=== PATIENT | male | born 1945 | race Caucasian/White ===

== ENCOUNTER → 2017-09-12 | Day surgery (SDC) | payer OTHER ==
[2017-09-11 16:57] LABS: BASOPHILS % 0.7 % (0.0-1.0); EOSINOPHILS # (AUTO) 0.1 (0.0-0.4); EOSINOPHILS % 2.4 % (0.0-6.0); HEMOGLOBIN 15.7 g/dL (14.0-18.0); LYMPHOCYTES # (AUTO) 1.5 (1.0-3.2); LYMPHOCYTES % 25.4 % (18.0-39.1); MEAN CORPUSCULAR HEMOGLOBIN 30.5 pg (28-32); MEAN CORPUSCULAR HGB CONC 34.9 g/dL (31-35); MEAN CORPUSCULAR VOLUME 87.5 fL (81-99); MONOCYTES # (AUTO) 0.5 (0.2-0.8); MONOCYTES % 7.7 % (4.4-11.3); NEUTROPHILS # (AUTO) 3.7 (2.1-6.9); NEUTROPHILS % 63.5 % (38.7-80.0); PLATELET COUNT 189 x10e3/uL (140-360); RED BLOOD COUNT 5.14 x10e6/uL (4.3-5.7); RED CELL DISTRIBUTION WIDTH 12.6 % (11.7-14.4)
--- NOTE | 2017-09-11 18:06 | Diagnostic Imaging Report ---
PROCEDURE: Frontal and lateral views of the chest. COMPARISON: None. INDICATIONS: PRE OP PROSTATE BIOPSY FINDINGS: Lines/tubes: None. Lungs: The lungs are well inflated and clear. There is no evidence of pneumonia or pulmonary edema. Incidentally seen azygous lobe. Pleura: There is no pleural effusion or pneumothorax. Heart and mediastinum: The heart and the mediastinum are normal. Bones: No acute bony abnormality. IMPRESSION: 1. No acute cardiopulmonary disease. Dictated by: Ori Bearden M.D. on 09/11/2017 at 18:10 Electronically approved by: Ori Bearden M.D. on 09/11/2017 at 18:10
[~2017-09-12] MED LIST: AMLODIPINE BESY10 MG PO; BELLADONNA/OPIUM 30 MG SUPP RC ONE; CEFTRIAXONE SOD 1 GM VIAL ONE; DEXAMETHASONE SOD PHOS INJ 4 MG/ML VIAL ONE; FENTANYL CITRATE/PF 100MCG/2 ML INJ ONE; FINASTERIDE5 MG PO; FLOMAX0.4 MG PO; GENTAMICIN 80MG/NS 100 ML 200 ML IV ONE; IOPAMIDOL 610MG/1ML 300 MG/ML VIAL IV ONE; KETAMINE HCL INJ 50 MG/ML 10 ML VIAL ONE; MIDAZOLAM HCL 2 MG/2 ML VIAL ONE; PROPOFOL IV EMULSION 10 MG/ML 20 ML VIAL ONE
--- NOTE | 2017-11-10 03:22 | Operative Report ---
DATE OF PROCEDURE: September 12, 2017 PREOPERATIVE DIAGNOSES 1. Benign prostatic hypertrophy. 2. Renal insufficiency. POSTOPERATIVE DIAGNOSES 1. Benign prostatic hypertrophy. 2. Renal insufficiency. OPERATIONS PERFORMED 1. Cystourethroscopy with bilateral ureteral catheterization and retrograde ureteropyelography (separate procedure performed for the renal insufficiency). 2. Interpretation of retrograde ureteropyelography. 3. Supervision of fluoroscopy. No radiologist present. 4. Cystourethroscopy with implantation of 4 UroLift implants. ANESTHESIA: General. COMPLICATIONS: None. CLINICAL SUMMARY: Nickolas Irene is a 72-year-old man with obstructive BPH. He is failing maximum medical therapy with finasteride and tamsulosin. The patient has a 58-mL prostate with negative prostate biopsies. He is brought for the above procedures. He is aware of the risks of bleeding, infection, injury to adjacent structures, need for additional procedures, and elected to proceed. OPERATIVE PROCEDURE IN DETAIL: Informed consent was verified. Nickolas Irene was properly identified, taken to operating room, placed on the cystoscopy table in supine position. Anesthesia was uneventfully begun. The patient was then carefully and gently repositioned in the dorsal lithotomy position with all pressure points well padded. His genitalia were prepared and draped in usual sterile fashion. The 22.5-Lith[place]ian cystoscope sheath with visual obturator in place was atraumatically inserted in patient's urethra and guided down the unremarkable urethra through the normal sphincteric region through the prostate bed that was significant for bilobar prostatic hypertrophy with kissing lateral lobes causing visual obstruction. Panendoscopy of the urinary bladder revealed grade-2 trabeculations with some glomerulations noted with minimal bladder distention. No suspicious lesions were identified. An 8-L[place]ian catheter was used to cannulate each ureter and retrograde ureteropyelograms were performed. Interpretation of retrograde ureteropyelography: Contrast was injected in retrograde fashion bilaterally. There were no tumors, no stones, and no diverticula. Unobstructed drainage was observed bilaterally fluoroscopically. There was a mass effect noted in the lower part of the right kidney consistent with the patient's known right renal cyst. The cystoscope was withdrawn with the cystoscope utilized for UroLift was atraumatically inserted. We then placed 4 UroLift implants. Two were placed 0.5 cm distal to the bladder neck anterolaterally and then, 2 additionally were placed anterolaterally at the level of the verumontanum. This resulted in continuous open anterior channel within the prostatic urethra. We verified positioning with the scope. We verified hemostasis with the scope. The bladder was drained. The cystoscope was withdrawn and the patient was uneventfully reversed from anesthesia and taken to recovery room in stable condition. Prior to leaving the operating room, digital rectal examination revealed a 40-g prostate, smooth, and non-fluctuant, without any nodules. Patient was then uneventfully reversed from anesthesia, taken to recovery room in stable condition. Plans will be to follow the patient up in the office. At which point, will perform uroflowmetry and bladder ultrasonography. Job#: [id number] CQ
== END | disposition home or self-care (01) ==
LOC: OR 07:16
PROVIDERS: ATTEND Urology
DX: N40.1 Benign prostatic hyperplasia with lower urinary tract symptoms (principal); N13.8 Other obstructive and reflux uropathy; N28.9 Disorder of kidney and ureter, unspecified; N32.89 Other specified disorders of bladder; N28.1 Cyst of kidney, acquired; I45.10 Unspecified right bundle-branch block; I10 Essential (primary) hypertension; Z01.810 Encounter for preprocedural cardiovascular examination; Z01.812 Encounter for preprocedural laboratory examination; Z01.818 Encounter for other preprocedural examination
CPT/HCPCS: 52005; C9740; 36415; 71046; 74420; 85025; 93005; J0696; J1100; J1580; J2250; L8699

== ENCOUNTER 2021-06-22 09:44 | Emergency (ER) | payer OTHER ==
[~2021-06-22] VITALS: Ht 170.2 cm; Wt 83.9 kg
[~2021-06-22 09:44] MED LIST changes: -BELLADONNA/OPIUM 30 MG SUPP RC ONE; -CEFTRIAXONE SOD 1 GM VIAL ONE; -DEXAMETHASONE SOD PHOS INJ 4 MG/ML VIAL ONE; -FENTANYL CITRATE/PF 100MCG/2 ML INJ ONE; -GENTAMICIN 80MG/NS 100 ML 200 ML IV ONE; -IOPAMIDOL 610MG/1ML 300 MG/ML VIAL IV ONE; -KETAMINE HCL INJ 50 MG/ML 10 ML VIAL ONE; -MIDAZOLAM HCL 2 MG/2 ML VIAL ONE; -PROPOFOL IV EMULSION 10 MG/ML 20 ML VIAL ONE
[2021-06-22] MEDS ORDERED: HYDROCODON-ACE1 EA11 PO (12:07)
== END 2021-06-22 12:38 | disposition home or self-care (01) ==
LOC: ER 10:18
DX: Z46.6 Encounter for fitting and adjustment of urinary device (principal); I10 Essential (primary) hypertension
CPT/HCPCS: 99283

== ENCOUNTER → 2024-07-16 | Day surgery (SDC) | payer OTHER ==
[2024-07-14 15:32] LABS: BASOPHILS % 0.5 % (0.0-1.0); EOSINOPHILS # (AUTO) 0.3 (0.0-0.4); EOSINOPHILS % 4.8 % (0.0-6.0); HEMATOCRIT 46.2 % (38.2-49.6); HEMOGLOBIN 15.6 g/dL (14.0-18.0); LYMPHOCYTES # (AUTO) 1.5 (1.0-3.2); LYMPHOCYTES % 26.6 % (18.0-39.1); MEAN CORPUSCULAR HEMOGLOBIN 30.5 pg (28-32); MEAN CORPUSCULAR HGB CONC 33.8 g/dL (31-35); MEAN CORPUSCULAR VOLUME 90.2 fL (81-99); MONOCYTES # (AUTO) 0.5 (0.2-0.8); MONOCYTES % 8.9 % (4.4-11.3); NEUTROPHILS # (AUTO) 3.3 (2.1-6.9); NEUTROPHILS % 58.8 % (38.7-80.0); PLATELET COUNT 231 x10e3/uL (140-360); RED BLOOD COUNT 5.12 x10e6/uL (4.3-5.7); RED CELL DISTRIBUTION WIDTH 13.1 % (11.7-14.4); WHITE BLOOD COUNT 5.61 x10e3/uL (4.8-10.8)
[2024-07-14 15:57] LABS: ANION GAP 14.1 mmol/L (8-16); CALCIUM 8.8 mg/dL (8.4-10.2); CREATININE, SERUM 1.54 mg/dL (0.72-1.25); POTASSIUM 4.1 mmol/L (3.5-5.1)
[~2024-07-16] MED LIST changes: +DEXAMETHASONE SOD PHOS INJ 4 MG/ML SDV ONE; +FENTANYL CITRATE/PF 100MCG/2 ML INJ ONE; +HYDROCODON-ACE1 EA11 PO; +LIDOCAINE HCL 2% LOCAL INJ 5 ML SDV VIAL INJ ONE; +ONDANSETRON HCL INJ 2MG/ML 2ML 2 MG/ML VIAL ONE; +PROPOFOL IV EMULSION 10 MG/ML 20 ML VIAL ONE; +SEVOFLURANE INHAL SOLN 250 ML PEN BTL ONE
[2024-07-16] MEDS: SODIUM CHLORIDE 0.9% 1000ML 1,000 ML ONE (14:25)
[2024-07-16] MEDS: GENTAMICIN 80MG/NS 100 ML 200 ML IV ONE (14:26)
[2024-07-16] MEDS: PIPERACILLIN/TAZOBACTAM 3.375 GM VIAL ONE (14:27)
[2024-07-16] MEDS: PHENAZOPYRIDINE HCL 100 MG TAB ONE (16:00)
[2024-07-16 16:41] VITALS: BP 147/86; PULSE 64; RESP 18; O2SAT 98
== END | disposition home or self-care (01) ==
LOC: OR 12:48
PROVIDERS: ATTEND Urology
DX: R97.20 Elevated prostate specific antigen [PSA] (principal); C61 Malignant neoplasm of prostate; N35.812 Other bulbous urethral stricture, male; N40.0 Benign prostatic hyperplasia without lower urinary tract symptoms; N32.89 Other specified disorders of bladder; I12.9 Hypertensive chronic kidney disease with stage 1 through stage 4 chronic kidney disease, or unspecified chronic kidney disease; N18.30 Chronic kidney disease, stage 3 unspecified; Z91.040 Latex allergy status; Z01.810 Encounter for preprocedural cardiovascular examination; Z01.812 Encounter for preprocedural laboratory examination; Z01.818 Encounter for other preprocedural examination; Z79.899 Other long term (current) drug therapy; Z68.29 Body mass index [BMI] 29.0-29.9, adult; Z96.0 Presence of urogenital implants
CPT/HCPCS: 36415; 52281; 55700; 71046; 74420; 76872; 76998; 80048; 85025; 88305; 93005; C1758; C1769; J1100; J1580; J2003; J2405; J2543; J2704; J3010; J7030; 88307

== ENCOUNTER 2024-10-22 08:57 | Inpatient (IN) | payer MEDICARE ==
[2024-10-19 14:39] LABS: BASOPHILS % 0.8 % (0.0-1.0); EOSINOPHILS % 3.3 % (0.0-6.0); LYMPHOCYTES % 24.5 % (18.0-39.1); MONOCYTES % 5.6 % (4.4-11.3); NEUTROPHILS % 65.3 % (38.7-80.0); RED CELL DISTRIBUTION WIDTH 12.5 % (11.7-14.4)
[2024-10-19 15:04] LABS: EST GLOMERULAR FILTRATION RATE 43.0 ML/MIN (>=60)
[~2024-10-22 08:57] MED LIST changes: -DEXAMETHASONE SOD PHOS INJ 4 MG/ML SDV ONE; -FENTANYL CITRATE/PF 100MCG/2 ML INJ ONE; -LIDOCAINE HCL 2% LOCAL INJ 5 ML SDV VIAL INJ ONE; -ONDANSETRON HCL INJ 2MG/ML 2ML 2 MG/ML VIAL ONE; -PROPOFOL IV EMULSION 10 MG/ML 20 ML VIAL ONE; -SEVOFLURANE INHAL SOLN 250 ML PEN BTL ONE
[2024-10-22] MEDS: CEFTRIAXONE 1 GM VIAL ONE ×2 (09:23→17:05)
[2024-10-22] MEDS: SODIUM CHLORIDE 0.9% 1000ML 1,000 ML ONE (09:24)
[2024-10-22] MEDS: GENTAMICIN 80MG/NS 100 ML 200 ML IV ONE (09:26)
[2024-10-22] MEDS ORDERED: PROPOFOL IV EMULSION 10 MG/ML 20 ML VIAL ONE (10:22)
[2024-10-22] MEDS ORDERED: FENTANYL CITRATE/PF 100MCG/2 ML INJ ONE ×2 (10:22→11:36)
[2024-10-22] MEDS ORDERED: LIDOCAINE HCL 2% LOCAL INJ 5 ML SDV VIAL INJ ONE (10:24)
[2024-10-22] MEDS ORDERED: FAMOTIDINE 20 MG/2 ML VIAL IV ONE (10:34)
[2024-10-22] MEDS ORDERED: ONDANSETRON HCL INJ 2MG/ML 2ML 2 MG/ML VIAL ONE (10:34)
[2024-10-22] MEDS ORDERED: GLYCOPYRROLATE INJ 0.2 MG/ML VIAL ONE (10:34)
[2024-10-22] MEDS ORDERED: DEXAMETHASONE SOD PHOS INJ 4 MG/ML SDV ONE (10:34)
[2024-10-22] MEDS ORDERED: CEFTRIAXONE 1 GM VIAL ONE (10:56)
[2024-10-22] MEDS ORDERED: ROCURONIUM BROMIDE 1 ML IV ONE (10:56)
[2024-10-22] MEDS: FENTANYL CITRATE/PF 100MCG/2 ML INJ ONE (13:06)
[2024-10-22] MEDS: HYDROMORPHONE 1MG/1ML INJ ONE ×2 (13:18→13:49)
[2024-10-22] MEDS ORDERED: ONDANSETRON HCL INJ 2MG/ML 2ML 2 MG/ML VIAL IV PRN ×2 (14:15→17:45)
[2024-10-22] MEDS ORDERED: ACETAMINOPHEN 1000 MG/100 ML IV PRN (14:15)
[2024-10-22] MEDS: PHENAZOPYRIDINE HCL 100 MG TAB PO PRN (15:20)
[2024-10-22 15:23] LABS: BASOPHILS % 0.3 % (0.0-1.0); EOSINOPHILS % 0.6 % (0.0-6.0); LYMPHOCYTES % 13.5 % (18.0-39.1); MONOCYTES % 1.7 % (4.4-11.3); NEUTROPHILS % 83.5 % (38.7-80.0); RED CELL DISTRIBUTION WIDTH 12.5 % (11.7-14.4)
[2024-10-22] MEDS: ONDANSETRON HCL INJ 2MG/ML 2ML 2 MG/ML VIAL ONE (15:40)
[2024-10-22 15:42] LABS: EST GLOMERULAR FILTRATION RATE 60.0 ML/MIN (>=60)
[2024-10-22] MEDS: PHENAZOPYRIDINE HCL 100 MG TAB ONE (16:56)
[2024-10-22] MEDS ORDERED: SENNA-S TABLET PO SCH (17:00)
[2024-10-22] MEDS: SODIUM CHLORIDE 0.9% 1000ML 1,000 ML IV SCH (17:33)
[2024-10-22] MEDS: ACETAMINOPHEN/CODEINE 300MG - 30MG TAB PO PRN (17:55)
[2024-10-22 18:06] VITALS: BP 148/77; PULSE 63; RESP 16; TEMP 98.7; O2SAT 99
[2024-10-22 20:00] VITALS: BP 145/73; PULSE 60; RESP 20; TEMP 97.7; O2SAT 97
[2024-10-22] MEDS: SENNA-S TABLET PO SCH (20:00)
[2024-10-22] MEDS: DIPHENHYDRAMINE HCL 25 MG CAP PO PRN (20:00)
[2024-10-23] VITALS (9 sets, daily range): BP systolic 122–148; BP diastolic 73–82; PULSE 58–113; RESP 18–20; TEMP 97.5–98.7; O2SAT 95–100
[2024-10-23 06:47] LABS: BASOPHILS % 0.1 % (0.0-1.0); EOSINOPHILS % 0.0 % (0.0-6.0); LYMPHOCYTES % 7.6 % (18.0-39.1); MONOCYTES % 5.9 % (4.4-11.3); NEUTROPHILS % 85.9 % (38.7-80.0); RED CELL DISTRIBUTION WIDTH 12.4 % (11.7-14.4)
[2024-10-23 07:47] LABS: EST GLOMERULAR FILTRATION RATE 54.0 ML/MIN (>=60)
[2024-10-24] VITALS (9 sets, daily range): BP systolic 131–149; BP diastolic 70–79; PULSE 60–79; RESP 17–18; TEMP 97.8–98.4; O2SAT 96–98
[2024-10-24 07:10] LABS: BASOPHILS % 0.2 % (0.0-1.0); EOSINOPHILS % 2.2 % (0.0-6.0); LYMPHOCYTES % 17.6 % (18.0-39.1); MONOCYTES % 7.9 % (4.4-11.3); NEUTROPHILS % 71.7 % (38.7-80.0); RED CELL DISTRIBUTION WIDTH 12.9 % (11.7-14.4)
[2024-10-24 07:42] LABS: EST GLOMERULAR FILTRATION RATE 52.0 ML/MIN (>=60)
[2024-10-24] MEDS: BISACODYL 10 MG SUPP PR ONE (14:51)
[2024-10-25] VITALS: BP 125/69; PULSE 66; RESP 18; TEMP 98.1; O2SAT 98
[2024-10-25 04:00] VITALS: BP 141/79; PULSE 60; RESP 18; TEMP 97.8; O2SAT 98
[2024-10-25 05:00] LABS: BASOPHILS % 0.4 % (0.0-1.0); EOSINOPHILS % 3.7 % (0.0-6.0); LYMPHOCYTES % 20.8 % (18.0-39.1); MONOCYTES % 9.4 % (4.4-11.3); NEUTROPHILS % 65.3 % (38.7-80.0); RED CELL DISTRIBUTION WIDTH 12.8 % (11.7-14.4)
[2024-10-25 05:18] LABS: EST GLOMERULAR FILTRATION RATE 60.0 ML/MIN (>=60)
[2024-10-25 07:36] VITALS: PULSE 60; RESP 18; O2SAT 98
[2024-10-25 08:15] VITALS: BP 148/76; PULSE 60; RESP 17; TEMP 98.1; O2SAT 98
[2024-10-25 11:34] VITALS: BP 155/78; PULSE 64; RESP 19; TEMP 98.8; O2SAT 98
[2024-10-25 16:00] VITALS: BP 141/78; PULSE 64; RESP 18; TEMP 97.8; O2SAT 99
== END 2024-10-25 18:10 | disposition home or self-care (01) | DRG 713 ==
LOC: OR 08:57 → PACU V 14:21 → MED/SURG 16:44
PROVIDERS: ADMIT Internal Medicine; ATTEND Internal Medicine
PROC: BT141ZZ Fluoroscopy of Kidneys, Ureters and Bladder using Low Osmolar Contrast (ICD-10-PCS; 2024-10-22)
PROC: 0V508ZZ Destruction of Prostate, Via Natural or Artificial Opening Endoscopic (ICD-10-PCS; principal; 2024-10-22 10:26)
PROC: 0T7D8ZZ Dilation of Urethra, Via Natural or Artificial Opening Endoscopic (ICD-10-PCS; 2024-10-22 10:26)
DX: N40.1 Benign prostatic hyperplasia with lower urinary tract symptoms (principal); N13.8 Other obstructive and reflux uropathy; R31.0 Gross hematuria; C61 Malignant neoplasm of prostate; N35.912 Unspecified bulbous urethral stricture, male; R31.29 Other microscopic hematuria; R39.14 Feeling of incomplete bladder emptying; R39.12 Poor urinary stream; R35.1 Nocturia; N32.89 Other specified disorders of bladder; N28.1 Cyst of kidney, acquired; Z96.0 Presence of urogenital implants; I12.9 Hypertensive chronic kidney disease with stage 1 through stage 4 chronic kidney disease, or unspecified chronic kidney disease; N18.9 Chronic kidney disease, unspecified; Z79.899 Other long term (current) drug therapy; Z79.890 Hormone replacement therapy
CPT/HCPCS: 36415; 74420; 80048; 83735; 85025; 93005; 94799; C1758; J0696; J1100; J1171; J1308; J1580; J2003; J2405; J7030